=== PATIENT | female | born 1995 | race Caucasian/White ===

== ENCOUNTER 2016-08-09 06:16 | Outpatient (CLI) | payer BC, OTHER ==
[~2016-08-09] VITALS: Ht 162.6 cm; Wt 72.6 kg
[2016-08-09] MEDS ORDERED: DESO1TAB6 PO (13:19)
== END 2016-08-09 13:30 ==
LOC: PREOP 06:16
PROVIDERS: ATTEND Otolaryngology Otolaryngology/Facial Plastic Surgery
DX: Z01.818 Encounter for other preprocedural examination (principal); H65.23 Chronic serous otitis media, bilateral

== ENCOUNTER 2016-08-13 06:31 | Day surgery (SDC) | payer BC ==
[~2016-08-13] VITALS: Ht 162.6 cm; Wt 72.6 kg
[~2016-08-13 06:31] MED LIST: DESO1TAB6 PO
--- OUTSIDE RECORDS SUMMARY | 2016-08-13 06:34 | XMS REPORT | Continuity of Care Document ---
Author Author [facility] Organization [facility] Address Unknown Phone Unavailable Support Name Relationship Address Phone KAREN RODRIGUEZ MD Caregiver Sangeetha Mclaughlin [address], [address] [place], [place] [phone] Insurance Providers Payer Name Policy Number Subscriber Name Relationship [facility] [id number] Chema Griffin 18 Self / Same As Patient Advance Directives Directive Response Recorded Date/Time Advance Directives No 08/09/16 1:17pm Health Care Power of Message Broker Developer No 08/09/16 1:17pm Resuscitation Status Full Code 08/09/16 1:17pm Problems No problem information available. Medications Current Home Medications Medication Dose Units Route Directions Days/Qty Instructions Start Date Desogestrel-Ethinyl Estradiol 1 Each 1 Each Oral 08/09/16 Social History Social History Problem Response Recorded Date/Time Alcohol Use Occasionally Uses 08/09/2016 1:17pm Recreational Drug Use No 08/09/2016 1:17pm Recent Foreign Travel No 08/09/2016 1:16pm Recent Infectious Disease Exposure No 08/09/2016 1:16pm Sexually Transmitted Disease No 08/09/2016 1:17pm HIV/AIDS No 08/09/2016 1:17pm Smoking Status Never a Smoker 08/09/2016 1:17pm Recent Hopitalizations No 08/09/2016 1:17pm Sexually Transmitted Disease No 08/09/2016 1:17pm Query Response Start Date Stop Date Smoking Status Never a Smoker Hospital Discharge Instructions No hospital discharge instructions. Plan of Care Discharge Date 08/09/16 1:30pm Prescriptions See Medication Section Functional Status No functional status results. Allergies, Adverse Reactions, Alerts No known allergies. Immunizations No immunization records. Vital Signs Acute Vital Signs Vital Response Date/Time Height (Feet) 5 feet 08/09/2016 1:13pm Height (Inches) 4.00 inches 08/09/2016 1:13pm Height (Calculated Centimeters) 162.713384 cm 08/09/2016 1:13pm Weight (Pounds) 160 pounds 08/09/2016 1:13pm Weight (Ounces) 0.0 oz 08/09/2016 1:13pm Weight (Calculated Grams) 82746.78 gm 08/09/2016 1:13pm Weight (Calculated Kilograms) 72.186022 kilograms 08/09/2016 1:13pm Calculated BMI 27.5 08/09/2016 1:13pm Results No known relevant diagnostic tests, laboratory data and/or discharge summary. Procedures No known history of procedures. Encounters Encounter Location Arrival/Admit Date Discharge/Depart Date Attending Provider Departed Clinic [facility] 08/09/16 6:16am 08/09/16 1: 30pm KAREN RODRIGUEZ MD
--- OUTSIDE RECORDS SUMMARY | 2016-08-13 06:34 | XMS REPORT | Continuity of Care Document ---
Author Author [facility] Organization [facility] Address Unknown Phone Unavailable Support Name Relationship Address Phone KAREN RODRIGUEZ MD Caregiver Sangeetha Mclaughlin [address], [address] [place], [place] [id number] Insurance Providers Payer Name Policy Number Subscriber Name Relationship [facility] [id number] Chema Griffin 18 Self / Same As Patient Advance Directives Directive Response Recorded Date/Time Advance Directives No 08/09/16 1:17pm Health Care Power of Channel Worker No 08/09/16 1:17pm Resuscitation Status Full Code [...] 4.00 inches 08/09/2016 1:13pm Height (Calculated Centimeters) 162.684881 cm 08/09/2016 1:13pm Weight (Pounds) 160 pounds 08/09/2016 1:13pm Weight (Ounces) 0.0 oz 08/09/2016 1:13pm Weight (Calculated Grams) 01469.78 gm 08/09/2016 1:13pm Weight (Calculated Kilograms) 72.843652 kilograms 08/09/2016 1:13pm Calculated BMI 27.5 08/09/2016 1:13pm Results No known relevant diagnostic tests, laboratory data and/or discharge summary. Procedures No known history of procedures. Encounters Encounter Location Arrival/Admit Date Discharge/Depart Date Attending Provider Departed Clinic [facility] 08/09/16 6:16am 08/09/16 1: 30pm KAREN RODRIGUEZ MD
--- NOTE | 2016-08-13 07:04 | Progress Note-Pre Operative ---
Pre-Operative Progress Note H&P Reviewed The H&P was reviewed, patient examined and no changes noted. Date H&P Reviewed: Aug 13, 2016 Time H&P Reviewed: 06:50 Pre-Operative Diagnosis: Bilat Chronic DRU KAREN RODRIGUEZ MD Aug 13, 2016 7:04 am
[2016-08-13] MEDS ORDERED: LIDOCAINE 1% 10 MG/ML 0.2 ML SYR (FOR IV START) ONE (07:34)
[2016-08-13 07:40] VITALS: BP 129/84
[2016-08-13] MEDS ORDERED: proPOfol 200 MG/20 ML (DIPRIVAN) VIAL IV ONE (07:55)
[2016-08-13] MEDS ORDERED: MIDAZOLAM 2 MG/2 ML (VERSED) VIAL ONE ×2 (07:55→08:31)
[2016-08-13] MEDS ORDERED: LIDOCAINE PF 2% 10 ML (XYLOCAINE) AMP ONE (07:55)
[2016-08-13] MEDS ORDERED: SEVOFLURANE (ULTANE) 15 ML INHAL SOLN ONE (07:56)
[2016-08-13] MEDS ORDERED: LACTATED RINGERS 1,000 ML IV ONE (08:00)
--- NOTE | 2016-08-13 08:41 | Progress Note-Post Operative ---
Post-Operative Progess Note Pre-Operative Diagnosis Bilat Chronic DRU Post-Operative Diagnosis same Post-Op Procedure Note Date of Procedure: Aug 13, 2016 Name of Procedure: bmt Anesthesia Type mask KAREN RODRIGUEZ MD Aug 13, 2016 8:40 am
[2016-08-13] MEDS ORDERED: APAP 325 MG/10.15 ML LIQ (TYLENOL) UDC PO PRN (08:45)
[2016-08-13] MEDS ORDERED: CIPR5DRO OP (09:22)
[2016-08-13 09:25] VITALS: BP 101/73
[2016-08-13 09:55] VITALS: BP 120/77
[2016-08-13 10:20] VITALS: BP 120/77
== END 2016-08-13 10:20 | disposition home or self-care (01) ==
LOC: SDC 06:31
PROVIDERS: ATTEND Otolaryngology Otolaryngology/Facial Plastic Surgery
DX: H65.23 Chronic serous otitis media, bilateral (principal)
CPT/HCPCS: 84703; 87081

== ENCOUNTER 2017-03-28 05:35 | Outpatient (CLI) | payer BC ==
[~2017-03-28] VITALS: Ht 162.6 cm; Wt 72.6 kg
[~2017-03-28 05:35] MED LIST changes: +CIPR5DRO OP
[2017-03-28] MEDS ORDERED: BIOT1TAB2 PO (13:24)
== END 2017-03-28 13:28 ==
LOC: PREOP 05:35
PROVIDERS: ATTEND Otolaryngology Otolaryngology/Facial Plastic Surgery
DX: Z01.818 Encounter for other preprocedural examination (principal); H66.91 Otitis media, unspecified, right ear

== ENCOUNTER → 2017-03-31 | Day surgery (SDC) | payer BC ==
[~2017-03-31] VITALS: Ht 162.6 cm; Wt 72.6 kg
[~2017-03-31] MED LIST changes: +APAP 325 MG/10.15 ML LIQ (TYLENOL) UDC PO PRN; +BIOT1TAB2 PO; +CIPR5DRO EACH EAR; +DEXAMETHASONE 10 MG/ML (DECADRON) 1 ML VIAL ONE; +LACTATED RINGERS 1,000 ML IV PRN; +LIDOCAINE PF 2% 5 ML (XYLOCAINE) VIAL ONE; +MIDAZOLAM 2 MG/2 ML (VERSED) VIAL ONE; +ONDANSETRON 4 MG/2 ML (SDV) Z0FRAN IVP PRN; +ONDANSETRON 4 MG/2 ML (SDV) Z0FRAN ONE; +SEVOFLURANE (ULTANE) 15 ML INHAL SOLN ONE; +fentaNYL INJECTION 100 MCG/2 ML AMP ONE; +proPOfol 200 MG/20 ML (DIPRIVAN) VIAL IV ONE
[2017-03-31 06:28] VITALS: BP 127/78
--- NOTE | 2017-03-31 07:08 | Progress Note-Pre Operative ---
Pre-Operative Progress Note H&P Reviewed The H&P was reviewed, patient examined and no changes noted. Date Seen by Provider: Mar 31, 2017 Time Seen by Provider: 06:40 Date H&P Reviewed: Mar 31, 2017 Time H&P Reviewed: 06:40 Pre-Operative Diagnosis: Chronic/REcurrent DRU KAREN RODRIGUEZ MD Mar 31, 2017 7:08 am
--- NOTE | 2017-03-31 07:19 | Progress Note-Post Operative ---
Post-Operative Progess Note Surgeon (s)/Tuber Machine Cutter (s) Surgeon KAREN RODRIGUEZ MD Tuber Machine Cutter n/a Pre-Operative Diagnosis Chronic/REcurrent DRU Post-Operative Diagnosis same Post-Op Procedure Note Date of Procedure: Mar 31, 2017 Name of Procedure Performed: BMT Description & Findings Description and Findings: n/a Anesthesia Type mask Estimated Blood Loss minimal Packing none. Specimen(s) collected/removed none KAREN RODRIGUEZ MD Mar 31, 2017 7:19 am
[2017-03-31 08:10] VITALS: BP 108/63
[2017-03-31 08:40] VITALS: BP 112/75
[2017-03-31 09:10] VITALS: BP 119/66
[2017-03-31 09:35] VITALS: BP 119/66
== END | disposition home or self-care (01) ==
LOC: SDC 05:53
PROVIDERS: ATTEND Otolaryngology Otolaryngology/Facial Plastic Surgery
DX: H65.23 Chronic serous otitis media, bilateral (principal)
CPT/HCPCS: 84703; 87081